=== PATIENT | female | born 1980 | race African-American/Black ===

== ENCOUNTER 2019-06-03 15:08 | Inpatient (IN) | payer MEDICAID ==
[~2019-06-03] VITALS: Ht 165.1 cm; Wt 71.3 kg
[2019-06-03] MEDS ORDERED: SODIUM CHLORIDE 0.9% 1,000 ML IV ONE (15:30)
[2019-06-03 16:15] LABS: HEMATOCRIT. 25.3 % (36.0-48.0); HEMOGLOBIN. 7.7 g/dL (12.0-16.0); MEAN CORPUSCULAR VOLUME 62.9 fL (81.0-99.0); PLATELET 254 x1000/uL (130-400); RED BLOOD CELL COUNT 4.02 mill/uL (4.2-5.4); RED CELL DISTRIBUTION WIDTH 22.8 % (11.6-14.6)
[2019-06-03 16:17] LABS: CHLORIDE 102 mEq/L (98-107)
[2019-06-03 16:43] LABS: PLATELET ESTIMATE NORMAL
[2019-06-03] MEDS ORDERED: KCL 20MEQ/100ML PREMIX 100 ML IV ONE (17:15)
[2019-06-03] MEDS ORDERED: POTASSIUM CHLORIDE 20MEQ TABLET SR PO ONE (17:15)
[2019-06-03 22:36] VITALS: BP 185/88
[2019-06-03] MEDS ORDERED: ONDANSETRON HCL 4MG/2ML INJ IV PRN (22:45)
[2019-06-03] MEDS ORDERED: HYDROMORPHONE HCL/PF 2MG/ML CPJ IV PRN (22:45)
[2019-06-04] MEDS: DEXT 5%/0.45% NACL KCL 10MEQ/L 1,000 ML IV SCH ×3 (02:51→17:35)
[2019-06-04 03:51] VITALS: BP 174/93
[2019-06-04] MEDS ORDERED: POTASSIUM CHLORIDE 20MEQ TABLET SR PO NR (06:00)
[2019-06-04 06:02] LABS: CHLORIDE 104 mEq/L (98-107)
[2019-06-04 06:29] LABS: MEAN CORPUSCULAR HEMOGLOBIN 19.7 pg (28.0-32.0); RED BLOOD CELL COUNT 3.58 mill/uL (4.2-5.4); RED CELL DISTRIBUTION WIDTH 22.4 % (11.6-14.6)
[2019-06-04 06:47] LABS: HEMATOCRIT. 22.9 % (36.0-48.0)
[2019-06-04 08:00] VITALS: BP 171/100
[2019-06-04 08:44] LABS: PLATELET 202 x1000/uL (130-400)
[2019-06-04 08:51] LABS: PLATELET ESTIMATE NORMAL
[2019-06-04] MEDS ORDERED: POTASSIUM CHLORIDE 20MEQ/PACKET PO NR (09:30)
[2019-06-04] MEDS ORDERED: POTASSIUM CHLORIDE 20MEQ TABLET SR PO ONE (10:30)
[2019-06-04 12:00] VITALS: BP 140/83
[2019-06-04 16:00] VITALS: BP 129/78
[2019-06-04] MEDS ORDERED: IRON SUCROSE COMPLEX 100 MG/5 ML ML IV SCH (17:00)
[2019-06-04] MEDS ORDERED: DEXT 5%/0.45% NACL KCL 10MEQ/L 1,000 ML IV SCH (18:00)
[2019-06-04 20:00] VITALS: BP 155/88
[2019-06-05] VITALS: BP 158/88
[2019-06-05 04:00] VITALS: BP 161/93
[2019-06-05] MEDS: DEXT 5%/0.45% NACL KCL 10MEQ/L 1,000 ML IV SCH (04:30)
[2019-06-05 07:58] LABS: CHLORIDE 104 mEq/L (98-107)
[2019-06-05 08:00] VITALS: BP 164/93
[2019-06-05 11:37] VITALS: BP 130/94
[2019-06-05] MEDS: MAGNESIUM OXIDE 400MG TABLET PO SCH ×2 (11:45→11:51)
[2019-06-05] MEDS: POTASSIUM CHLORIDE 20MEQ TABLET SR PO NR ×3 (11:51→12:00)
[2019-06-05] MEDS ORDERED: POTASSIUM CHLORIDE 20MEQ/PACKET PO NR (12:00)
[2019-06-05 12:13] VITALS: BP 148/100
== END 2019-06-05 14:07 | disposition home or self-care (01) | DRG 48 ==
LOC: ER 15:08 → EDBD 15:08 → 7WST 17:53 → ENRESERV 21:19
PROVIDERS: ADMIT Hospitalist; ATTEND Hospitalist
DX: G90.8 Other disorders of autonomic nervous system (principal); M32.9 Systemic lupus erythematosus, unspecified; D64.9 Anemia, unspecified; E87.6 Hypokalemia; Z53.29 Procedure and treatment not carried out because of patient's decision for other reasons; G89.4 Chronic pain syndrome; I10 Essential (primary) hypertension; Z88.6 Allergy status to analgesic agent; Z88.5 Allergy status to narcotic agent; Z88.2 Allergy status to sulfonamides
CPT/HCPCS: 36415; 71045; 83735; 83880; 84484; 86850; 86900; 93005; 96360; 96361; 99285; J3480; J7030

== ENCOUNTER 2024-01-08 00:05 | Emergency (ER) | payer MEDICAID ==
[~2024-01-08] VITALS: Ht 165.1 cm; Wt 46.0 kg
[2024-01-08 00:12] VITALS: O2SAT 100
[2024-01-08 02:38] VITALS: BP 169/84; PULSE 72; RESP 18; TEMP 98.7
== END 2024-01-08 02:41 | disposition home or self-care (01) ==
LOC: ER 00:05
DX: M79.644 Pain in right finger(s) (principal); I10 Essential (primary) hypertension; Z91.040 Latex allergy status; Z88.4 Allergy status to anesthetic agent; Z88.7 Allergy status to serum and vaccine; Z88.2 Allergy status to sulfonamides; Z88.6 Allergy status to analgesic agent; Z98.890 Other specified postprocedural states
CPT/HCPCS: 73130; 99283